=== PATIENT | female | born 1955 | race Caucasian/White ===

== ENCOUNTER → 2017-04-13 | Outpatient (CLI) | payer BC ==
--- NOTE | 2017-04-13 09:35 | RADIOLOGY REPORT (SQ) ---
EXAM DESCRIPTION: KNEE LEFT 4 VIEWS COMPLETED DATE/TIME: 04/13/2017 9:14 am REASON FOR STUDY: PAIN IN RT KNEE;PAIN IN LT KNEE M25.561 PAIN IN RIGHT KNEE M25.562 PAIN IN LEFT KNEE COMPARISON: None. NUMBER OF VIEWS: Four views. TECHNIQUE: AP, lateral, and both oblique radiographic images acquired of the left knee. LIMITATIONS: None. FINDINGS: MINERALIZATION: Normal. BONES: No acute fracture or dislocation. No worrisome bone lesions. 3 compartment osteophytes. JOINT: No effusion. No chondrocalcinosis. OTHER: No other significant finding. IMPRESSION: 3 compartment osteoarthritis. TECHNICAL DOCUMENTATION: JOB ID: [id number] [employer]- All Rights Reserved
--- NOTE | 2017-04-13 09:36 | RADIOLOGY REPORT (SQ) ---
EXAM DESCRIPTION: KNEE RIGHT 4 VIEWS COMPLETED DATE/TIME: 04/13/2017 9:14 am REASON FOR STUDY: . M25.561 PAIN IN RIGHT KNEE M25.562 PAIN IN LEFT KNEE COMPARISON: None. NUMBER OF VIEWS: Four views. TECHNIQUE: AP, lateral, and both oblique radiographic images acquired of the right knee. LIMITATIONS: None. FINDINGS: MINERALIZATION: Normal. BONES: No acute fracture or dislocation. No worrisome bone lesions. 3 compartment osteophytes most pr ominent medial compartment. JOINT: Medial compartment joint space narrowing. No effusion. OTHER: No other significant finding. IMPRESSION: 3 compartment osteoarthritis most marked medial compartment. TECHNICAL DOCUMENTATION: JOB ID: [id number] [employer]- All Rights Reserved
== END ==
LOC: RAD 08:51
PROVIDERS: ATTEND Physician Assistant
DX: M25.561 Pain in right knee (principal); M25.562 Pain in left knee; M17.0 Bilateral primary osteoarthritis of knee

== ENCOUNTER → 2017-05-06 | Outpatient (CLI) | payer BC ==
--- NOTE | 2017-05-06 15:20 | RADIOLOGY REPORT (SQ) ---
EXAM DESCRIPTION: MRI LT LOWER JOINT WITHOUT COMPLETED DATE/TIME: 05/06/2017 9:54 am REASON FOR STUDY: PAIN IN LEFT KNEE M25.562 PAIN IN LEFT KNEE COMPARISON: Recent radiographs. TECHNIQUE: Leftknee images acquired and stored on PACS. Multiplanar images include fat sensitive se quences as T1, water sensitive sequences as FST2 or STIR, cartilage sensitive sequences as FSPD, and gradient echo sequences. LIMITATIONS: Up to mild motion artifact on some sequences. FINDINGS: JOINT AND BURSAE: Fairly small joint effusion. No loose bodies. BONE CORTEX AND MARROW: No alteration of signal to suggest marrow replacement. No worrisome bone lesi ons. No occult fracture. ACL: Hyperintense throughout suggesting significant mucoid degeneration. Anteromedial fiber bundle i s intact. PCL: Intact. Loculated hyperintense T2 cyst/ ganglion in the posterior notch. This measures up to a lmost 2 cm maximal transverse dimension and lies posterior to the PCL. MCL: Intact. LCL: Intact. MEDIAL MENISCUS: Tear is suspected in the posterior meniscus root with blunting and fraying along the free margin. Slightly extruded appearance. LATERAL MENISCUS: Suspect tear in the posterior horn with slightly extruded appearance. MEDIAL COMPARTMENT: Generalized loss of hyaline cartilage, relatively denuded appearance with associa huma osteophytes. No large subchondral cysts or erosions. LATERAL COMPARTMENT: Cartilage preserved. No bone bruises or reactive marrow edema. No osteophytes. PATELLA: Normal location. No focal chondral lesions. Mild osteophytes. No subchondral cysts or ero sions. EXTENSOR MECHANISM: Intact. Quadriceps and patella tendons normal. SOFT TISSUES: Small partially ruptured Carranza's cyst. Appropriate vascular flow voids. OTHER: No other significant finding. IMPRESSION: 1. Medial and lateral meniscus tears. 2. Chondromalacia throughout the medial compartme nt. Osteophytes without bone cysts. 3. Mucoid ACL degeneration. Posterior notch ganglion. TECHNICAL DOCUMENTATION: JOB ID: [id number] [employer]- All Rights Reserved Reading location - IP/workstation name: [email or web address]
== END ==
LOC: RAD 08:56
PROVIDERS: ATTEND Family Medicine
DX: M25.562 Pain in left knee (principal); S83.282A Other tear of lateral meniscus, current injury, left knee, initial encounter; S83.242A Other tear of medial meniscus, current injury, left knee, initial encounter; X58.XXXA Exposure to other specified factors, initial encounter; M22.42 Chondromalacia patellae, left knee

== ENCOUNTER → 2017-09-14 | Outpatient (CLI) | payer BC ==
--- NOTE | 2017-09-14 11:48 | RADIOLOGY REPORT (SQ) ---
EXAM DESCRIPTION: VENOUS UNILATERAL LOWER COMPLETED DATE/TIME: 09/14/2017 11:36 am REASON FOR STUDY: RLE PAIN M79.604 PAIN IN RIGHT LEG COMPARISON: None. TECHNIQUE: Dynamic and static cedeno scale and color images acquired of the right leg venous system. S elected spectral images acquired with additional compression and augmentation maneuvers. The contrala teral common femoral vein and saphenofemoral junction were also imaged. Images stored on PACS. LIMITATIONS: None. FINDINGS: COMMON FEMORAL: Normal phasicity, compression and augmentation. No visualized echogenic ma terial on cedeno scale. No defects on color images. FEMORAL: Normal compression and augmentation. No visualized echogenic material on cedeno scale. No defe cts on color images. POPLITEAL: Normal compression, augmentation. No visualized echogenic material on cedeno scale. No defec ts on color images. CALF VESSELS: Normal compression, augmentation. No visualized echogenic material on cedeno scale. No de fects on color images. GSV and SSV: Normal compression, augmentation. No visualized echogenic material on cedeno scale. No def ects on color images. ANY DEEP VENOUS INSUFFICIENCY: Not evaluated. ANY EVIDENCE OF POPLITEAL CYST: No. OTHER: No other significant finding. CONTRALATERAL COMMON FEMORAL VEIN AND SAPHENOFEMORAL JUNCTION: Normal phasicity, compression and augmentation. No visualized echogenic material on cedeno scale. No de fects on color images. IMPRESSION: NO EVIDENCE DVT OR SVT IN THE RIGHT LEG. TECHNICAL DOCUMENTATION: JOB ID: [id number] [employer]- All Rights Reserved Reading location - IP/workstation name: [email or web address]
== END ==
LOC: SP 10:03
PROVIDERS: ATTEND Family Medicine
DX: M79.604 Pain in right leg (principal)
CPT/HCPCS: 93971

== ENCOUNTER → 2018-01-25 | Outpatient (CLI) | payer BC ==
--- NOTE | 2018-01-29 15:59 | WOMENS IMAGING REPORT ---
EXAM DESCRIPTION: BILAT SCREENING MAMMO W/CAD COMPLETED DATE/TIME: 01/25/2018 7:35 am REASON FOR STUDY: SCREENING MAMMO Z12.31 ENCNTR SCREEN MAMMOGRAM FOR MALIGNANT NEOPLASM OF JOSHUA COMPARISON: 2013 TECHNIQUE: Standard craniocaudal and mediolateral oblique views of each breast recorded using digita l acquisition. LIMITATIONS: None. FINDINGS: Findings present which are benign by mammographic criteria. No suspicious masses, calcifi cations or architectural distortion. Pertinent benign findings: Surgical changes on the left. Read with the assistance of CAD. .[facility] - R2 Cenova Version 1.3 .[facility] Imaging - R2 Cenova Version 1.3 .[facility] - R2 Cenova Version 2.4 .[facility] - R2 Cenova Version 2.4 .[facility] - R2 [employer]er Version 9.2 Benign mammographic findings may include one or more of the following: Smooth masses, popcorn/rim/co arse calcifications, asymmetries, post-procedure changes, and lesions with long-standing stability. IMPRESSION: BENIGN MAMMOGRAPHIC FINDINGS. BIRADS 2 BREAST DENSITY: b. There are scattered areas of fibroglandular density. BIRAD: 2 BENIGN FINDING(S) RECOMMENDATION: ROUTINE SCREENING COMMENT: The patient has been notified of the results by letter per SA requirements. Additional no tification policies are in place for contacting patient with suspicious or incomplete findings. Quality ID #225: The [employer] [place] [employer] recommends an annual screening mammogram for women aged 40 years or over. This facility utilizes a reminder system to ensure that all patients receive reminder letters, and/or direct phone calls for appointments. This includes reminders for routine scr eening mammograms, diagnostic mammograms, or other Breast Imaging Interventions when appropriate. Th is patient will be placed in the appropriate reminder system. The [employer] [place] [employer] (ACR) has developed recommendations for screening MRI of the breast s in certain patient populations, to be used in conjunction with mammography. Breast MRI surveillanc e may be appropriate for women with more than 20% lifetime risk of developing breast cancer as deter mined by genetic testing, significant family history of the disease, or history of mantle radiation f or Hodgkins Disease. ACR Practice Guidelines 2008. TECHNICAL DOCUMENTATION: FINDING NUMBER: (1) ASSESSMENT: (1) JOB ID: [id number] [email or web address]- All Rights Reserved Reading location - IP/workstation name: [email or web address]
== END ==
LOC: RAD 07:02
PROVIDERS: ATTEND Family Medicine
DX: Z12.31 Encounter for screening mammogram for malignant neoplasm of breast (principal)
CPT/HCPCS: 77067

== ENCOUNTER → 2018-02-08 | Outpatient (CLI) | payer BC ==
--- NOTE | 2018-02-08 08:18 | RADIOLOGY REPORT (SQ) ---
EXAM DESCRIPTION: ANKLE LEFT COMPLETE COMPLETED DATE/TIME: 02/08/2018 7:46 am REASON FOR STUDY: PAIN IN LEFT ANKLE AND JOINTS OF LEFT FOOT M25.572 PAIN IN LEFT ANKLE AND JOINTS OF LEFT FOOT COMPARISON: None. NUMBER OF VIEWS: Three views. TECHNIQUE: AP, lateral, and oblique radiographic images acquired of the left ankle. LIMITATIONS: None. FINDINGS: MINERALIZATION: Normal. BONES: Slight deformity at the tip of the medial malleolus may be related prior remote trauma. No a cute fracture or dislocation. Calcaneal spurs. JOINTS: No effusions. SOFT TISSUES: No soft tissue swelling. No foreign body. OTHER: No other significant finding. IMPRESSION: 1. No acute osseous findings. 2. Calcaneal spurs. TECHNICAL DOCUMENTATION: JOB ID: [id number]- All Rights Reserved Reading location - IP/workstation name: [email or web address]
== END ==
LOC: OD 07:31
PROVIDERS: ATTEND Family Medicine
DX: M25.572 Pain in left ankle and joints of left foot (principal)

== ENCOUNTER → 2018-09-18 | Outpatient (CLI) | payer BC ==
[2018-09-18 10:14] LABS: ABSOLUTE BASOPHILS # (AUTO) 0.1 10^3/uL (0.0-0.2); ABSOLUTE EOSINOPHILS # (AUTO) 0.1 10^3/uL (0.0-0.6); ABSOLUTE LYMPHOCYTES (AUTO) 1.8 10^3/uL (0.5-4.7); ABSOLUTE MONOCYTES (AUTO) 0.5 10^3/uL (0.1-1.4); ABSOLUTE NEUT (AUTO) 3.7 10^3/uL (1.7-8.2); BASOPHILS % (AUTO) 1.2 % (0-2); EOSINOPHILS % (AUTO) 2.2 % (0-6); HEMATOCRIT 38.1 % (36.0-47.0); HEMOGLOBIN 12.7 g/dL (12.0-15.5); LYMPHOCYTES % (AUTO) 28.5 % (13-45); MEAN CORPUSCULAR HEMOGLOBIN 30.1 pg (27.0-33.4); MEAN CORPUSCULAR HGB CONC 33.3 g/dL (32.0-36.0); MEAN CORPUSCULAR VOLUME 90 fl (80-97); MONOCYTES % (AUTO) 7.8 % (3-13); PLATELET COUNT 407 10^3/uL (150-450); RED BLOOD COUNT 4.21 10^6/uL (3.72-5.28); RED CELL DISTRIBUTION WIDTH 13.2 % (11.5-14.0); SEGMENTED NEUTROPHILS % (AUTO) 60.3 % (42-78); TOTAL CELLS COUNTED % (AUTO) 100 %; WHITE BLOOD COUNT 6.1 10^3/uL (4.0-10.5)
[2018-09-18 10:26] LABS: APPEARANCE,URINE CLEAR; BILIRUBIN,URINE NEGATIVE (NEGATIVE); COLOR,URINE YELLOW; GLUCOSE, URINE NEGATIVE (NEGATIVE); KETONES,URINE NEGATIVE (NEGATIVE); LEUKOCYTE ESTERASE,URINE TRACE (NEGATIVE); NITRITE,URINE POSITIVE (NEGATIVE); PROTEIN,URINE NEGATIVE (NEGATIVE); URINE SPECIFIC GRAVITY 1.005; UROBILINOGEN,URINE NEGATIVE mg/dL (<2.0)
[2018-09-18 10:36] LABS: ANION GAP 11 (5-19); BLOOD UREA NITROGEN 15 mg/dL (7-20); CARBON DIOXIDE 25 mmol/L (22-30); CHLORIDE 105 mmol/L (98-107); GLUCOSE 85 mg/dL (75-110); POTASSIUM 4.5 mmol/L (3.6-5.0)
--- NOTE | 2018-09-18 11:49 | RADIOLOGY REPORT (SQ) ---
EXAM DESCRIPTION: CHEST PA/LATERAL COMPLETED DATE/TIME: 09/18/2018 9:56 am REASON FOR STUDY: PRE-OP COMPARISON: None. EXAM PARAMETERS: NUMBER OF VIEWS: two views TECHNIQUE: Digital Frontal and Lateral radiographic views of the chest acquired. RADIATION DOSE: NA LIMITATIONS: none FINDINGS: LUNGS AND PLEURA: No opacities, masses or pneumothorax. No pleural effusion. MEDIASTINUM AND HILAR STRUCTURES: No masses or contour abnormalities. HEART AND VASCULAR STRUCTURES: Heart normal size. No evidence for failure. BONES: No acute findings. HARDWARE: None in the chest. OTHER: No other significant finding. IMPRESSION: NO SIGNIFICANT RADIOGRAPHIC FINDING IN THE CHEST. TECHNICAL DOCUMENTATION: JOB ID: [id number] [employer]- All Rights Reserved Reading location - IP/workstation name: [email or web address]
--- NOTE | 2018-09-18 13:38 | EKG REPORT ---
SEVERITY:- NORMAL ECG - SINUS RHYTHM : Confirmed by: Aretha Norman 18-Sep-2018 13:37:26
== END ==
LOC: OD 09:05
PROVIDERS: ATTEND Orthopaedic Surgery
DX: Z01.810 Encounter for preprocedural cardiovascular examination (principal); Z01.811 Encounter for preprocedural respiratory examination; Z01.812 Encounter for preprocedural laboratory examination; M17.0 Bilateral primary osteoarthritis of knee; I10 Essential (primary) hypertension
CPT/HCPCS: 36415; 71046; 80048; 81001; 85025; 93005; 93010

== ENCOUNTER 2018-10-15 05:37 | Inpatient (IN) | payer MEDICARE, OTHER ==
[~2018-10-15 05:37] MED LIST: BUPIVACAINE INJ/PF LIPOSOME/PF 266 MG/20 ML SDV INJ PRN; CEFAZOLIN INJ 1 GM VIAL IV PRN; CEFAZOLIN INJ 1 GM VIAL ONE; IBUPROFEN 800 MG in NORMAL SALINE 250 ML IV PRN; LACTATED RINGERS 1000 ML IV PRN; LIDOCAINE 0.5% INJ-PF (5 MG/ML) 50 ML SDV SUBCUT PRN; OXYCODONE HCL SR 10 MG TABLET PO ONE; OXYCODONE HCL SR 10 MG TABLET PO PRN; PANTOPRAZOLE SODIUM 20 MG TABLET.DR PO ONE; PANTOPRAZOLE SODIUM 20 MG TABLET.DR PO PRN; VANCOMYCIN HCL 1,000 MG in DEXTROSE 5%-WATER 250 ML IV PRN
[2018-10-15] MEDS ORDERED: LIDOCAINE 2% INJ-PF (20 MG/ML) 10 ML AMPUL ONE (06:45)
[2018-10-15] MEDS ORDERED: TRANEXAMIC ACID INJ/PF 1,000 MG/10 ML SDV IV ONE ×2 (06:45→10:00)
[2018-10-15] MEDS ORDERED: ONDANSETRON HCL INJ/PF 4 MG/2 ML SDV ONE (06:45)
[2018-10-15] MEDS ORDERED: DEXAMETHASONE SOD PHOSPHATE INJ 4 MG/1 ML VIAL ONE ×2 (06:45→09:49)
[2018-10-15] MEDS ORDERED: PROPOFOL INJ 200 MG/20 ML VIAL IV ONE (06:46)
[2018-10-15] MEDS ORDERED: FENTANYL CITRATE INJ/PF 100 MCG/2 ML AMPUL ONE ×2 (06:46→10:22)
[2018-10-15] MEDS ORDERED: MIDAZOLAM 2 MG/2 ML INJ ONE (06:46)
[2018-10-15] MEDS ORDERED: BUPIVACAINE HCL 0.25% /EPINEPHRINE INJ/PF 30 ML SDV ONE (07:09)
[2018-10-15] MEDS ORDERED: FENTANYL CITRATE INJ/PF 250 MCG/5 ML AMPULE ONE (07:24)
[2018-10-15] MEDS ORDERED: HYDROMORPHONE HCL INJ/PF 2 MG/ML AMPULE ONE (07:25)
[2018-10-15] MEDS ORDERED: FENTANYL CITRATE INJ/PF 100 MCG/2 ML AMPUL IV PRN ×3 (08:14)
[2018-10-15] MEDS ORDERED: PROMETHAZINE HCL INJ 25 MG/1 ML VIAL IV PRN ×4 (08:14→13:13)
[2018-10-15] MEDS ORDERED: DIPHENHYDRAMINE HCL 50 MG/ML VIAL IV PRN ×2 (08:14→09:13)
[2018-10-15] MEDS ORDERED: MEPERIDINE HCL/PF INJ 25 MG/1 ML DISP.SYRIN IV PRN (08:14)
[2018-10-15] MEDS ORDERED: ACETAMINOPHEN 325 MG TABLET PO PRN (09:13)
[2018-10-15] MEDS ORDERED: ONDANSETRON HCL INJ/PF 4 MG/2 ML SDV IV PRN (09:13)
[2018-10-15] MEDS ORDERED: ZOLPIDEM TARTRATE 5 MG TABLET PO PRN (09:13)
[2018-10-15] MEDS ORDERED: MAG HYDROX/AL HYDROX/SIMETH SUSP 30 ML UDCUP PO PRN (09:13)
[2018-10-15] MEDS ORDERED: ONDANSETRON 4 MG TAB.RAPDIS PO PRN (09:13)
--- NOTE | 2018-10-15 09:20 | Operative Report ---
Operative Report DATE OF SURGERY: 10/15/18 PREOPERATIVE DIAGNOSIS: Bilateral knee osteoarthritis OPERATION: Bilateral knee arthroplasty SURGEON: MIRACLE LARA ANESTHESIA: Spinal TISSUE REMOVED OR ALTERED: Bone to pathology ESTIMATED BLOOD LOSS: 100 PROCEDURE: Implants used: Femur: Andreia triathlon size 4 CR uncemented femur Tibia: 4 uncemented tibia Tibial liner:9mm CS insert Patella:[32 mm uncemented patella] Procedure with the patient supine on the operating table the bilateral the limb is prepped and draped in a sterile fashion. The left limb was elevated for e xsanguination and the tourniquet inflated to 280 torr. A standard midline median parapatellar approach the knee is taken. Access is gained to the femoral canal through the intercondylar notch. Intramedullary alignment instrumentation used to resect 10 mm of distal femur in 5 of valgus. Sizing guide indicated a size 4 femur. Appropriate cutting jig is then used to fashion anterior posterior and chamfer cuts. A trial reduction femur is performed and this is judged to be adequate. Attention was next turned to the tibia. Using an extra medullary alignment system 9 millimeters was resected off the lateral tibial plateau. This is sized to a size 4 tibia. A trial reduction was now performed with a 4 femur and a 4 tibia using a 9 millimeters spacer. It is full extension and central pat ellofemoral tracking. The articular surface the patella was next resected using an oscillating saw. All trial implants were removed and the cancellus surfaces maria c the sleeve irrigated with pulse lavage. The above implants are impacted into position. the tourniquet was deflated hemostasis obtained the wound is then closed in layers using interrupted Vicryl followed by darian. Medical procedures performed on the right side sequentially. A sterile compressive dressing was applied and the patient returned to recovery room in satisfactory condition.
[2018-10-15] MEDS ORDERED: PROMETHAZINE HCL INJ 25 MG/1 ML VIAL ONE (09:46)
[2018-10-15] MEDS ORDERED: SCOPOLAMINE HYDROBROMIDE 1.5 MG PATCH.TD72 ONE (09:46)
[2018-10-15] MEDS ORDERED: (PENDING PHARMACY ID) (Esomeprazole Magnesium [Nexium] 20 MG) PO SCH (10:00)
[2018-10-15] MEDS ORDERED: (PENDING PHARMACY ID) (Lisinopril [Lisinopril] 20 MG) PO SCH (10:00)
[2018-10-15] MEDS ORDERED: ACETAMINOPHEN 1,000 MG/100 ML RTUPB IV ONE (10:24)
--- NOTE | 2018-10-15 10:37 | RADIOLOGY REPORT (SQ) ---
EXAM DESCRIPTION: KNEE BILATERAL 1-2 VIEWS COMPLETED DATE/TIME: 10/15/2018 10:26 am REASON FOR STUDY: Post OP -Long Cassette in PACU M17.11 UNILATERAL PRIMARY OSTEOARTHRITIS, RIGHT KN EE M17.12 UNILATERAL PRIMARY OSTEOARTHRITIS, LEFT KNEE COMPARISON: None NUMBER OF VIEWS: Two views. TECHNIQUE: AP and lateral knees. LIMITATIONS: None. FINDINGS: Postoperative images show a total knee arthroplasty is bilaterally in good position. IMPRESSION: Bilateral total knee arthroplasties. Refer to operative note for further information. TECHNICAL DOCUMENTATION: JOB ID: [id number] [employer]- All Rights Reserved Reading location - IP/workstation name: [email or web address]
[2018-10-15] MEDS ORDERED: NEOSTIGMINE METHYLSULFATE 10 MG/10 ML VIAL ONE (14:39)
[2018-10-15] MEDS ORDERED: GLYCOPYRROLATE 1 MG/5 ML VIAL ONE (14:39)
[2018-10-15] MEDS ORDERED: SUCCINYLCHOLINE CHLORIDE INJ 200 MG/10 ML VIAL ONE (14:39)
[2018-10-15] MEDS ORDERED: ROCURONIUM BROMIDE INJ 50 MG/5 ML VIAL IV ONE (14:39)
[2018-10-15] MEDS ORDERED: PHENYLEPHRINE HCL INJ/PF 10 MG/1 ML SDV ONE (14:39)
[2018-10-15] MEDS: IBUPROFEN 800 MG in NORMAL SALINE 250 ML IV SCH (14:51)
[2018-10-15] MEDS: OXYCODONE HCL IR 5 MG TABLET PO PRN ×2 (14:55→21:50)
[2018-10-15] MEDS: RINGERS SOLUTION,LACTATED 1,000 ML IV PRN (15:18)
--- NOTE | 2018-10-15 15:51 | EKG REPORT ---
SEVERITY:- ABNORMAL ECG - SINUS RHYTHM LEFT VENTRICULAR HYPERTROPHY : Confirmed by: Lian Reyes MD 15-Oct-2018 15:50:18
[2018-10-15 16:00] LABS: HEMATOCRIT 33.6 % (36.0-47.0); MEAN CORPUSCULAR HEMOGLOBIN 29.3 pg (27.0-33.4); MEAN CORPUSCULAR HGB CONC 32.7 g/dL (32.0-36.0); MEAN CORPUSCULAR VOLUME 90 fl (80-97); PLATELET COUNT 360 10^3/uL (150-450); RED BLOOD COUNT 3.75 10^6/uL (3.72-5.28); RED CELL DISTRIBUTION WIDTH 13.1 % (11.5-14.0); WHITE BLOOD COUNT 20.2 10^3/uL (4.0-10.5)
[2018-10-15] MEDS: OXYCODONE HCL SR 10 MG TABLET PO SCH (17:32)
[2018-10-15] MEDS: SENNOSIDES/DOCUSATE 8.6-50 MG 1 EACH TABLET PO SCH (17:33)
[2018-10-15] MEDS ORDERED: VANCOMYCIN HCL 1,000 MG in DEXTROSE 5%-WATER 250 ML IV ONE (21:00)
[2018-10-16] MEDS: IBUPROFEN 800 MG in NORMAL SALINE 250 ML IV SCH ×4 (00:20→22:58)
[2018-10-16] MEDS: RINGERS SOLUTION,LACTATED 1,000 ML IV PRN (00:28)
[2018-10-16] MEDS: OXYCODONE HCL IR 5 MG TABLET PO PRN ×3 (04:17→23:41)
[2018-10-16 05:57] LABS: HEMATOCRIT 25.7 % (36.0-47.0); MEAN CORPUSCULAR HEMOGLOBIN 30.1 pg (27.0-33.4); MEAN CORPUSCULAR HGB CONC 33.4 g/dL (32.0-36.0); MEAN CORPUSCULAR VOLUME 90 fl (80-97); PLATELET COUNT 288 10^3/uL (150-450); RED BLOOD COUNT 2.85 10^6/uL (3.72-5.28); RED CELL DISTRIBUTION WIDTH 13.4 % (11.5-14.0); WHITE BLOOD COUNT 11.7 10^3/uL (4.0-10.5)
[2018-10-16 05:59] LABS: HEMOGLOBIN 8.6 g/dL (12.0-15.5)
[2018-10-16 06:13] LABS: ANION GAP 9 (5-19); BLOOD UREA NITROGEN 18 mg/dL (7-20); CALCIUM 8.5 mg/dL (8.4-10.2); CARBON DIOXIDE 26 mmol/L (22-30); CHLORIDE 102 mmol/L (98-107); GLUCOSE 105 mg/dL (75-110); POTASSIUM 4.3 mmol/L (3.6-5.0)
[2018-10-16] MEDS: PANTOPRAZOLE SODIUM 20 MG TABLET.DR PO SCH (06:27)
[2018-10-16] MEDS: OXYCODONE HCL SR 10 MG TABLET PO SCH ×2 (06:52→17:58)
--- NOTE | 2018-10-16 07:25 | PDOC PROGRESS REPORT ---
Subjective Progress Note for:: 10/16/18 Reason For Visit: BILATERAL KNEE ARTHRITIS 63-year-old white female postop day 1 status post bilateral primary knee arthroplasty. Patient with a vasovagal episode yesterday and now complains of left greater than right knee pain. Physical Exam Vital Signs: Temp Pulse Resp BP Pulse Ox 37.0 C 93 16 111/55 L 94 10/16/18 01:00 10/16/18 01:00 10/16/18 01:00 10/16/18 01:00 10/16/18 01:00 Intake & Output 10/15/18 10/16/18 10/17/18 06:59 06:59 06:59 Intake Total 0 8000 Output Total 50 Balance 0 7950 Weight 70.32 kg Physical Exam: Moderately built middle-aged white female leaving the bathroom with a walker in the attendance of a nurse. She is alert, oriented, and appropriate. General appearance: PRESENT: no acute distress, mild distress Head exam: PRESENT: normocephalic Respiratory exam: PRESENT: unlabored Cardiovascular exam: PRESENT: RRR Pulses: PRESENT: +1 pedal pulses bilateral Vascular exam: PRESENT: normal capillary refill GI/Abdominal exam: PRESENT: soft Rectal exam: PRESENT: deferred Extremities exam: PRESENT: other - Left lower extremity dressing with drainage today and both compressive dressings are removed. The OpSite on the right knee remains clean dry and intact. Left knee OpSite is saturated. This is changed. Wound is well approximated darian. Neurological exam: PRESENT: alert, awake, oriented to person, oriented to place, oriented to time, oriented to situation. ABSENT: motor sensory deficit Psychiatric exam: PRESENT: appropriate affect, normal mood. ABSENT: homicidal ideation, suicidal ideation Skin exam: PRESENT: dry, intact, warm. ABSENT: cyanosis, rash Results Laboratory Results: 10/16/18 05:30 10/16/18 05:30 10/15/18 10/16/18 10/16/18 15:15 05:30 05:30 WBC 20.2 H 11.7 H RBC 3.75 2.85 L Hgb 11.0 L 8.6 L D Hct 33.6 L 25.7 L MCV 90 90 MCH 29.3 30.1 MCHC 32.7 33.4 RDW 13.1 13.4 Plt Count 360 288 Sodium 136.7 L Potassium 4.3 Chloride 102 Carbon Dioxide 26 Anion Gap 9 BUN 18 Creatinine 0.85 Est GFR ( Amer) > 60 Est GFR (Non-Af Amer) > 60 Glucose 105 Calcium 8.5 Impressions: Knee X-Ray 10/15/18 09:15 IMPRESSION: Bilateral total knee arthroplasties. Refer to operative note for further information. Status: Imported from PACS Assessment & Plan - Diagnosis (1) Arthritis of both knees Is this a current diagnosis for this admission?: Yes Plan: Patient mobilized with physical therapy and weightbearing as tolerated basis - Time Time Spent with patient: 15-24 minutes Anticipated discharge: Home with Homehealth Within: within 24 hours
[2018-10-16] MEDS ORDERED: TRANEXAMIC ACID INJ/PF 1,000 MG/10 ML SDV IV ONE (08:30)
[2018-10-16] MEDS: PRENATAL VITAMIN W DHA CAPSULE PO SCH (09:07)
[2018-10-16] MEDS: ASPIRIN 81 MG TABLET, ENT COATED PO SCH (09:07)
[2018-10-16] MEDS: METOCLOPRAMIDE HCL 10 MG TABLET PO SCH (09:07)
[2018-10-16] MEDS: SENNOSIDES/DOCUSATE 8.6-50 MG 1 EACH TABLET PO SCH ×2 (09:07→17:58)
[2018-10-16] MEDS: AMLODIPINE BESYLATE 10 MG TABLET PO SCH (13:21)
[2018-10-16] MEDS: LISINOPRIL 10 MG TABLET PO SCH (13:21)
[2018-10-17] MEDS: IBUPROFEN 800 MG in NORMAL SALINE 250 ML IV SCH (03:14)
[2018-10-17] MEDS ORDERED: IBUPROFEN 800 MG in NORMAL SALINE 250 ML IV ONE ×5 (03:15→11:00)
[2018-10-17] MEDS: PANTOPRAZOLE SODIUM 20 MG TABLET.DR PO SCH (06:37)
[2018-10-17] MEDS: OXYCODONE HCL SR 10 MG TABLET PO SCH (06:38)
[2018-10-17 06:40] LABS: HEMATOCRIT 20.4 % (36.0-47.0); MEAN CORPUSCULAR HEMOGLOBIN 30.8 pg (27.0-33.4); MEAN CORPUSCULAR VOLUME 91 fl (80-97); PLATELET COUNT 213 10^3/uL (150-450); RED BLOOD COUNT 2.25 10^6/uL (3.72-5.28); RED CELL DISTRIBUTION WIDTH 13.2 % (11.5-14.0); WHITE BLOOD COUNT 10.1 10^3/uL (4.0-10.5)
[2018-10-17 06:43] LABS: HEMOGLOBIN 6.9 g/dL (12.0-15.5)
--- NOTE | 2018-10-17 07:20 | PDOC DISCHARGE SUMMARY ---
General - Admit/Disc Date/PCP Admission Date/Primary Care Provider: 10/15/18 05:37 RENNY BURLESON, Discharge Date: 10/17/18 - Discharge Diagnosis (1) Arthritis of both knees Is this a current diagnosis for this admission?: Yes Summary: 63-year-old white female with bilateral knee osteoarthritis is being admitted for an elective bilateral knee arthroplasty. - Additional Information Resuscitation Status: Full Code Discharge Diet: As Tolerated, Regular Discharge Activity: Balance Activity w/Rest, No tub bath Home Medications: Amlodipine Besylate [Norvasc 10 mg Tablet] 10 mg PO DAILY 10/01/18 Esomeprazole Magnesium [Nexium] 20 mg PO DAILY 10/01/18 Lisinopril 20 mg PO DAILY 10/01/18 Metoclopramide HCl [Reglan] 10 mg PO ACHS 10/01/18 Aspirin [Aspirin 81 mg Chewable Tablet] 81 mg PO DAILY 10/15/18 Additional Information: Patient being discharged on oxycodone and enteric-coated aspirin History of Present Illness History of Present Illness: CHRISTY WHITMORE is a 63 year old female 53-year-old white female with bilateral knee osteoarthritis and progressive pain and functional disability from this. Patient is admitted for elective bilateral knee arthroplasty. Hospital Course Hospital Course: Patient is admitted through the operating where she undergoes uncomplicated bilateral knee arthroplasty. She has drainage from the left knee incision that requires dressing changes. Progress with physical therapy. She develops an acute blood loss anemia ultimately with hematocrit of 20%. She remains asymptomatic and her dizziness and a decision is made in conjunction with the patient do not transfuse her at this point but supplemented with multivitamins and iron. Physical Exam Vital Signs: Temp Pulse Resp BP Pulse Ox 38.4 C H 129 H 17 122/41 L 96 10/16/18 23:42 10/16/18 23:42 10/16/18 23:42 10/16/18 23:42 10/16/18 23:42 Intake & Output 10/16/18 10/17/18 10/18/18 06:59 06:59 06:59 Intake Total 8250 3166 Output Total 50 Balance 8200 3166 Weight 70.3 kg 72.2 kg Physical Exam: Relates white female sitting up in bed. She is alert oriented and appropriate. General appearance: PRESENT: no acute distress, mild distress, well-developed, well-nourished Head exam: PRESENT: normocephalic Respiratory exam: PRESENT: unlabored Cardiovascular exam: PRESENT: RRR Pulses: PRESENT: +1 pedal pulses bilateral Vascular exam: PRESENT: normal capillary refill GI/Abdominal exam: PRESENT: soft Rectal exam: PRESENT: deferred Extremities exam: PRESENT: other - Dressing was changed on postop day 2 on the left lower extremity. The incision is well approximated with darian. Is clean dry and intact. OpSite dressing on the right knee remains clean dry and intact. Neurological exam: PRESENT: alert, awake, oriented to person, oriented to place, oriented to time, oriented to situation. ABSENT: motor sensory deficit Psychiatric exam: PRESENT: appropriate affect, normal mood. ABSENT: homicidal ideation, suicidal ideation Skin exam: PRESENT: dry, intact, warm. ABSENT: cyanosis, rash Results Laboratory Results: 10/17/18 05:55 10/16/18 05:30 10/17/18 05:55 WBC 10.1 RBC 2.25 L Hgb 6.9 L Hct 20.4 L MCV 91 MCH 30.8 MCHC 34.0 RDW 13.2 Plt Count 213 Impressions: Knee X-Ray 10/15/18 09:15 IMPRESSION: Bilateral total knee arthroplasties. Refer to operative note for further information. Status: Imported from PACS Qualifiers - * PATIENT BEING DISCHARGED WITH ANY OF THE FOLLOWING DIAGNOSIS: No VTE patient discharged on overlapping Therapy?: Yes Acute Heart Failure - Is this a Heart Failure Patient?: No Plan Discharge Plan: Patient be discharged home with home health services and DME. Follow-up with Dr. Renteria and [facility] for surgery in 2 weeks for staple removal. Time Spent: Less than 30 Minutes
[2018-10-17] MEDS: OXYCODONE HCL IR 5 MG TABLET PO PRN (08:56)
[2018-10-17 09:35] VITALS: BP 125/51
[2018-10-17] MEDS: PRENATAL VITAMIN W DHA CAPSULE PO SCH (10:04)
[2018-10-17] MEDS: SENNOSIDES/DOCUSATE 8.6-50 MG 1 EACH TABLET PO SCH (10:04)
[2018-10-17] MEDS: LISINOPRIL 10 MG TABLET PO SCH (10:04)
[2018-10-17] MEDS: ASPIRIN 81 MG TABLET, ENT COATED PO SCH (10:04)
[2018-10-17] MEDS: AMLODIPINE BESYLATE 10 MG TABLET PO SCH (10:04)
[2018-10-17] MEDS: METOCLOPRAMIDE HCL 10 MG TABLET PO SCH (10:06)
== END 2018-10-17 11:30 | disposition home health service (06) | DRG 462 ==
LOC: INOR 05:37 → 4S 11:17
PROVIDERS: ADMIT Orthopaedic Surgery; ATTEND Orthopaedic Surgery
PROC: 0SRC0JA Replacement of Right Knee Joint with Synthetic Substitute, Uncemented, Open Approach (ICD-10-PCS; 2018-10-15)
PROC: 0SRD0JA Replacement of Left Knee Joint with Synthetic Substitute, Uncemented, Open Approach (ICD-10-PCS; principal; 2018-10-15 07:30)
DX: M17.0 Bilateral primary osteoarthritis of knee (principal); D62 Acute posthemorrhagic anemia; I10 Essential (primary) hypertension; E78.00 Pure hypercholesterolemia, unspecified; K21.9 Gastro-esophageal reflux disease without esophagitis; R42 Dizziness and giddiness
CPT/HCPCS: 01402; 36415; 80048; 85027; 88305; 88311; 93005; 93010; 94799; C1776; J0131; J0330; J0690; J1100; J1170; J1741; J2250; J2370; J2405; J2550; J2704; J2710; J3010; J3370; J3490; J7050; J7060; J7120

== ENCOUNTER → 2019-02-05 | Outpatient (CLI) | payer MEDICARE, OTHER ==
--- NOTE | 2019-02-05 15:18 | WOMENS IMAGING REPORT ---
EXAM DESCRIPTION: BILAT SCREENING MAMMO W/CAD COMPLETED DATE/TIME: 02/05/2019 10:22 am REASON FOR STUDY: Z12.31 SCREENING MAMMO Z12.31 ENCNTR SCREEN MAMMOGRAM FOR MALIGNANT NEOPLASM OF B RE COMPARISON: 2018 EXAM PARAMETERS: Standard craniocaudal and mediolateral oblique views of each breast recorded using digital acquisition. Read with the assistance of CAD. .[facility] - [employer] Clerk Version 9.2 LIMITATIONS: None. FINDINGS: Findings present which are benign by mammographic criteria. No suspicious masses, calcifi cations or architectural distortion. Pertinent benign findings: Old post therapeutic changes medial left breast with lumpectomy site and p ostoperative architectural distortion and benign dystrophic calcifications. Left breast skin thicken ing post radiation. Benign mammographic findings may include one or more of the following: Smooth masses, popcorn/rim/co arse calcifications, asymmetries, post-procedure changes, and lesions with long-standing stability. IMPRESSION: BENIGN MAMMOGRAPHIC FINDINGS. BIRADS 2 BREAST DENSITY: b. There are scattered areas of fibroglandular density. BIRAD: ASSESSMENT: 2 BENIGN FINDING(S) RECOMMENDATION: ROUTINE SCREENING Please continue yearly bilateral screening mammography/tomosynthesis in January 2020 COMMENT: The patient has been notified of the results by letter per SA requirements. Additional no tification policies are in place for contacting patient with suspicious or incomplete findings. Quality ID #225: The [employer] recommends an annual screening mammogram for women aged 40 years or over. This facility utilizes a reminder system to ensure that all patients receive reminder letters, and/or direct phone calls for appointments. This includes reminders for routine scr eening mammograms, diagnostic mammograms, or other Breast Imaging Interventions when appropriate. Th is patient will be placed in the appropriate reminder system. TECHNICAL DOCUMENTATION: FINDING NUMBER: (1) ASSESSMENT: (1) JOB ID: [id number] [employer]- All Rights Reserved Reading location - IP/workstation name: [email or web address]
== END ==
LOC: WI 10:05
PROVIDERS: ATTEND Family Medicine
DX: Z12.31 Encounter for screening mammogram for malignant neoplasm of breast (principal)
CPT/HCPCS: 77067

== ENCOUNTER → 2020-02-12 | Outpatient (CLI) | payer MEDICARE, OTHER ==
--- NOTE | 2020-02-12 13:03 | WOMENS IMAGING REPORT ---
EXAM DESCRIPTION: 3D SCREENING MAMMO BILAT IMAGES COMPLETED DATE/TIME: 02/12/2020 9:29 am REASON FOR STUDY: Z12.31 ENCNTR SCREEN MAMMOGRAM FOR MALIGNANT NEOPLASM OF BREAST COMPARISON: 02/05/2019, 01/25/2018 EXAM PARAMETERS: Standard craniocaudal and mediolateral oblique views of each breast recorded using digital acquisition and breast tomosynthesis. Read with the assistance of CAD. .[facility] - [employer] Template Fitter Version 9.2 LIMITATIONS: None. FINDINGS: Findings present which are benign by mammographic criteria. No suspicious masses, calcific ations or architectural distortion. Pertinent benign findings: Posttreatment changes of the left upper outer breast. Benign mammographic findings may include one or more of the following: Smooth masses, popcorn/rim/coa rse calcifications, asymmetries, post-procedure changes, and lesions with long-standing stability. IMPRESSION: BENIGN MAMMOGRAPHIC FINDINGS. BIRADS 2 BREAST DENSITY: b. There are scattered areas of fibroglandular density. BIRAD: ASSESSMENT: 2 BENIGN FINDING(S) RECOMMENDATION: ROUTINE SCREENING COMMENT: The patient has been notified of the results by letter per SA requirements. Additional no tification policies are in place for contacting patient with suspicious or incomplete findings. Quality ID #225: The [place] [employer] recommends an annual screening mammogram for women aged 40 years or over. This facility utilizes a reminder system to ensure that all patients receive reminder letters, and/or direct phone calls for appointments. This includes reminders for routine scr eening mammograms, diagnostic mammograms, or other Breast Imaging Interventions when appropriate. Th is patient will be placed in the appropriate reminder system. TECHNICAL DOCUMENTATION: FINDING NUMBER: (1) ASSESSMENT: (1) JOB ID: [id number] 2010 [employer]- All Rights Reserved Reading location - IP/workstation name: [email or web address]
== END ==
LOC: WI 08:40
PROVIDERS: ATTEND Family Medicine
DX: Z12.31 Encounter for screening mammogram for malignant neoplasm of breast (principal)
CPT/HCPCS: 77063; 77067